=== PATIENT | male | born 1965 | race Caucasian/White ===

== ENCOUNTER 2017-09-11 00:09 | Emergency (ER) | payer OTHER ==
[~2017-09-11] VITALS: Ht 165.1 cm; Wt 63.5 kg
[~2017-09-11 00:09] MED LIST: AMLO10TA PO; ASPI81CT89 PO; ATOR20TA PO; LISI10TA11 PO; MULT-1469 PO; SEVE800T6 PO; TRA200 PO
[2017-09-11 00:20] VITALS: BP 131/81
--- NOTE | 2017-09-11 00:23 | NUR ---
TO BED # 1 AMBULATORY , REPORT GIVEN TO SOLANGE BURKETT
--- NOTE | 2017-09-11 00:25 | NUR ---
PT CAME IN WITH PAIN TO THE BACK. PT IS ABLE TO WALK AND HAS STEADY GAIT. DENIES N/V/D; SKIN IS PINK/WARM/DRY; AAOX4 WITH EVEN AND STEADY GAIT; HR EVEN AND REGULAR; PATIENT STATES PAIN OF 5/10 AT THIS TIME; VSS; PATIENT POSITIONED FOR COMFORT; HOB ELEVATED; BEDRAILS UP X2; BED DOWN. ER MD MADE AWARE OF PT STATUS.
--- NOTE | 2017-09-11 00:30 | NUR ---
pt has a shunt on his left arm. dialysis
[2017-09-11] MEDS ORDERED: ACETAMINOPHEN EXTRA STRENGTH 500 MG TAB PO ONE (01:35)
--- NOTE | 2017-09-11 02:12 | NUR ---
Patient discharged with v/s stable. Written and verbal after care instructions given and explained. Patient alert, oriented and verbalized understanding of instructions. Ambulatory with steady gait. All questions addressed prior to discharge. ID band removed. Patient advised to follow up with PMD. Rx of Lidoderm and Acetaminophen were given. Patient educated on indication of medication including possible reaction and side effects. Opportunity to ask questions provided and answered.
[2017-09-11 02:27] VITALS: BP 124/73
== END 2017-09-11 02:12 | disposition home or self-care (01) ==
LOC: MED 00:09
DX: M54.30 Sciatica, unspecified side (principal); M79.1 Myalgia; I10 Essential (primary) hypertension; Z79.899 Other long term (current) drug therapy; Z94.0 Kidney transplant status; Z79.82 Long term (current) use of aspirin
CPT/HCPCS: 99283

== ENCOUNTER 2020-03-09 19:27 | Inpatient (IN) | payer OTHER, SELFPAY ==
[~2020-03-09] VITALS: Ht 170.2 cm; Wt 70.5 kg
[~2020-03-09 19:27] MED LIST changes: +ASPI-1822 PO; -ASPI81CT89 PO; +LISI-486 PO; -LISI10TA11 PO
[2020-03-09 19:49] VITALS: BP 135/80
[2020-03-09 20:55] LABS: BASOPHILS % (AUTO) 0.1 % (0.0-2.0); EOSINOPHILS % (AUTO) 0.1 % (0.0-4.0); HEMATOCRIT 47.3 % (36-52); HEMOGLOBIN 15.7 g/dL (12.0-18.0); LYMPHOCYTES # (AUTO) 0.3 K/uL (2.0-11.5); LYMPHOCYTES % (AUTO) 4.3 % (20.5-51.1); MEAN CORPUSCULAR HEMOGLOBIN 29 pg (27-31); MEAN CORPUSCULAR HGB CONC 33 g/dL (33-37); MONOCYTES # (AUTO) 0.6 K/uL (0.8-1.0); MONOCYTES % (AUTO) 10.5 % (1.7-9.3); PLATELET COUNT (AUTO) 191 K/uL (140-450); RED BLOOD CELL COUNT(AUTO) 5.38 MIL/uL (4.20-6.10); RED CELL DISTRIBUTION WIDTH 14.1 % (11.6-13.7); WHITE BLOOD COUNT (AUTO) 5.9 K/uL (4.8-10.8)
[2020-03-09] MEDS ORDERED: CEL250 PO (21:03)
[2020-03-09] MEDS ORDERED: PRED5TAB8 PO (21:03)
[2020-03-09] MEDS ORDERED: TACR1CAP17 PO (21:03)
[2020-03-09] MEDS ORDERED: DEXAMETHASONE 10 MG/ML VIAL IVP ONE (21:05)
[2020-03-09] MEDS ORDERED: AZITHROMYCIN 500 MG in DEXTROSE 5% 250 ML IV ONE (21:05)
[2020-03-09 21:12] LABS: ALBUMIN 3.1 g/dL (3.4-5.0); ANION GAP 14.2 (8-16); CREATININE 1.4 mg/dL (0.6-1.3); POTASSIUM 4.2 mmol/L (3.5-5.1); TOTAL BILIRUBIN 0.4 mg/dL (0.0-1.0)
[2020-03-09] MEDS ORDERED: cefTRIAXone 1,000 MG VIAL ONE (21:12)
[2020-03-09] MEDS ORDERED: AZITHROMYCIN 500 MG INJ VIAL IV ONE (21:12)
[2020-03-09 21:14] LABS: LACTATE DEHYDROGENASE 310 U/L (85-227)
[2020-03-09 21:16] LABS: C-REACTIVE PROTEIN QUANT 7.2 mg/dL (0.0-0.9)
[2020-03-10] MEDS ORDERED: ACETAMINOPHEN 325 MG TAB PO PRN (01:05)
[2020-03-10] MEDS ORDERED: DOCUSATE SODIUM 100 MG GELCAP PO PRN (01:05)
[2020-03-10] MEDS ORDERED: HYDROcodone/APAP 7.5/325 MG 1 TAB PO PRN (01:05)
[2020-03-10] MEDS ORDERED: ALBUTEROL HFA MDI 90 MCG/ACTUATION 8 GM INH PRN (01:05)
[2020-03-10] MEDS ORDERED: POTASSIUM CHLORIDE 10 MEQ TABER PO PRN (01:05)
[2020-03-10 02:35] LABS: CHOL/HDL RATIO 3.3 (1-4.5); FREE T4 (FREE THYROXINE) 1.15 ng/dL (0.76-1.46); PHOSPHORUS 3.3 mg/dL (2.5-4.9); THYROID STIMULATING HORMONE 2.09 uIU/mL (0.34-3.74)
[2020-03-10] MEDS: ONDANSETRON 4 MG/2 ML VIAL IM/IVP PRN (06:46)
[2020-03-10 08:00] VITALS: BP 121/71
[2020-03-10] MEDS: ASCORBIC ACID 500 MG TAB PO SCH (08:55)
[2020-03-10] MEDS: ZINC SULF 220 MG CAP PO SCH (08:55)
[2020-03-10 12:00] VITALS: BP 116/69
[2020-03-10] MEDS: TACROLIMUS 0.5 MG CAP PO SCH ×2 (15:52→20:54)
[2020-03-10 16:00] VITALS: BP 137/86
[2020-03-10 20:00] VITALS: BP 128/86
[2020-03-10] MEDS: MYCOPHENOLATE 250 MG CAP PO SCH (20:53)
[2020-03-10] MEDS: lisinopriL 10 MG TAB PO SCH (20:53)
[2020-03-10] MEDS: ATORVASTATIN 20 MG TAB PO SCH (20:54)
[2020-03-10] MEDS: LABETALOL 200 MG TAB PO SCH (20:55)
[2020-03-11] VITALS: BP 94/61
[2020-03-11] MEDS ORDERED: LORazepam 2 MG/ML VIAL IVP PRN (05:20)
[2020-03-11] MEDS: AZITHROMYCIN 250 MG TAB PO SCH (05:24)
[2020-03-11 08:00] VITALS: BP 101/64
[2020-03-11] MEDS: amLODIPine 5 MG TAB PO SCH (09:00)
[2020-03-11] MEDS: lisinopriL 10 MG TAB PO SCH ×2 (09:00→21:00)
[2020-03-11] MEDS: LABETALOL 200 MG TAB PO SCH ×2 (09:00→21:00)
[2020-03-11] MEDS: MYCOPHENOLATE 250 MG CAP PO SCH ×2 (09:00→20:08)
[2020-03-11 09:33] LABS: BASOPHILS % (AUTO) 0.1 % (0.0-2.0); HEMATOCRIT 43.8 % (36-52); HEMOGLOBIN 14.6 g/dL (12.0-18.0); LYMPHOCYTES # (AUTO) 0.4 K/uL (2.0-11.5); LYMPHOCYTES % (AUTO) 3.5 % (20.5-51.1); MEAN CORPUSCULAR HEMOGLOBIN 29 pg (27-31); MEAN CORPUSCULAR HGB CONC 33 g/dL (33-37); MEAN CORPUSCULAR VOLUME 87.8 fL (80-94); MONOCYTES # (AUTO) 0.9 K/uL (0.8-1.0); MONOCYTES % (AUTO) 8.6 % (1.7-9.3); NEUTROPHILS # (AUTO) 9.3 K/uL (1.8-7.7); NEUTROPHILS % (AUTO) 87.8 % (42.2-75.2); PLATELET COUNT (AUTO) 253 K/uL (140-450); RED BLOOD CELL COUNT(AUTO) 4.99 MIL/uL (4.20-6.10); RED CELL DISTRIBUTION WIDTH 13.9 % (11.6-13.7); WHITE BLOOD COUNT (AUTO) 10.6 K/uL (4.8-10.8)
[2020-03-11 09:46] LABS: ANION GAP 17.7 (8-16); CARBON DIOXIDE 22.5 mmol/L (21-32); CREATININE 1.5 mg/dL (0.6-1.3); POTASSIUM 4.2 mmol/L (3.5-5.1)
[2020-03-11] MEDS: predniSONE 5 MG TAB PO SCH (09:51)
[2020-03-11] MEDS: ASCORBIC ACID 500 MG TAB PO SCH (09:51)
[2020-03-11] MEDS: TACROLIMUS 0.5 MG CAP PO SCH ×2 (09:51→20:16)
[2020-03-11] MEDS: VIT-B COMP/VIT-C/FOLIC ACID 1 TAB PO SCH (09:52)
[2020-03-11] MEDS: ASPIRIN 81 MG TAB.CHEW PO SCH (09:52)
[2020-03-11] MEDS: ZINC SULF 220 MG CAP PO SCH (09:53)
[2020-03-11 10:06] LABS: T4 (THYROXINE) 6.7 ug/dL (4.5-12.0)
[2020-03-11 12:00] VITALS: BP 109/79
[2020-03-11 16:00] VITALS: BP 120/73
[2020-03-11 20:00] VITALS: BP 106/68
[2020-03-11] MEDS: ATORVASTATIN 20 MG TAB PO SCH (20:15)
[2020-03-11] MEDS: ONDANSETRON 4 MG/2 ML VIAL IM/IVP PRN (21:23)
[2020-03-12] VITALS: BP 128/79
[2020-03-12 04:00] VITALS: BP 120/79
[2020-03-12 06:56] LABS: BASOPHILS % (AUTO) 0.3 % (0.0-2.0); HEMATOCRIT 46.1 % (36-52); HEMOGLOBIN 15.4 g/dL (12.0-18.0); LYMPHOCYTES # (AUTO) 0.3 K/uL (2.0-11.5); LYMPHOCYTES % (AUTO) 2.3 % (20.5-51.1); MEAN CORPUSCULAR HEMOGLOBIN 29 pg (27-31); MEAN CORPUSCULAR HGB CONC 33 g/dL (33-37); MEAN CORPUSCULAR VOLUME 87.1 fL (80-94); MONOCYTES % (AUTO) 7.5 % (1.7-9.3); NEUTROPHILS # (AUTO) 12.1 K/uL (1.8-7.7); NEUTROPHILS % (AUTO) 89.9 % (42.2-75.2); PLATELET COUNT (AUTO) 296 K/uL (140-450); RED BLOOD CELL COUNT(AUTO) 5.28 MIL/uL (4.20-6.10); RED CELL DISTRIBUTION WIDTH 13.8 % (11.6-13.7); WHITE BLOOD COUNT (AUTO) 13.4 K/uL (4.8-10.8)
[2020-03-12 07:24] LABS: ANION GAP 16.3 (8-16); CARBON DIOXIDE 23.3 mmol/L (21-32); CREATININE 1.2 mg/dL (0.6-1.3); POTASSIUM 4.6 mmol/L (3.5-5.1)
[2020-03-12 08:00] VITALS: BP 121/71
[2020-03-12] MEDS: TACROLIMUS 0.5 MG CAP PO SCH ×2 (09:00→21:46)
[2020-03-12] MEDS: MYCOPHENOLATE 250 MG CAP PO SCH (09:00)
[2020-03-12] MEDS: LABETALOL 200 MG TAB PO SCH ×2 (09:27→21:32)
[2020-03-12] MEDS: lisinopriL 10 MG TAB PO SCH ×2 (09:27→21:43)
[2020-03-12] MEDS: ASCORBIC ACID 500 MG TAB PO SCH (09:27)
[2020-03-12] MEDS: ASPIRIN 81 MG TAB.CHEW PO SCH (09:28)
[2020-03-12] MEDS: AZITHROMYCIN 250 MG TAB PO SCH (09:28)
[2020-03-12] MEDS: ZINC SULF 220 MG CAP PO SCH (09:28)
[2020-03-12] MEDS: amLODIPine 5 MG TAB PO SCH (09:29)
[2020-03-12] MEDS: predniSONE 5 MG TAB PO SCH (09:29)
[2020-03-12] MEDS: VIT-B COMP/VIT-C/FOLIC ACID 1 TAB PO SCH (09:29)
[2020-03-12 12:00] VITALS: BP 97/66
[2020-03-12 16:00] VITALS: BP 106/69
[2020-03-12 20:00] VITALS: BP 107/69
[2020-03-12] MEDS: ATORVASTATIN 20 MG TAB PO SCH (21:31)
[2020-03-13] VITALS: BP 112/71
[2020-03-13 04:00] VITALS: BP 107/69
[2020-03-13 07:47] LABS: BASOPHILS # (AUTO) 0.1 K/uL (0.00-0.22); BASOPHILS % (AUTO) 0.5 % (0.0-2.0); HEMATOCRIT 46.4 % (36-52); HEMOGLOBIN 15.3 g/dL (12.0-18.0); LYMPHOCYTES # (AUTO) 0.3 K/uL (2.0-11.5); LYMPHOCYTES % (AUTO) 1.9 % (20.5-51.1); MEAN CORPUSCULAR HEMOGLOBIN 29 pg (27-31); MEAN CORPUSCULAR HGB CONC 33 g/dL (33-37); MONOCYTES # (AUTO) 0.9 K/uL (0.8-1.0); MONOCYTES % (AUTO) 6.5 % (1.7-9.3); NEUTROPHILS # (AUTO) 12.9 K/uL (1.8-7.7); NEUTROPHILS % (AUTO) 91.1 % (42.2-75.2); PLATELET COUNT (AUTO) 353 K/uL (140-450); RED BLOOD CELL COUNT(AUTO) 5.28 MIL/uL (4.20-6.10); RED CELL DISTRIBUTION WIDTH 14.3 % (11.6-13.7); WHITE BLOOD COUNT (AUTO) 14.2 K/uL (4.8-10.8)
[2020-03-13 07:56] LABS: ANION GAP 14.9 (8-16); CREATININE 1.4 mg/dL (0.6-1.3); POTASSIUM 4.9 mmol/L (3.5-5.1)
[2020-03-13 08:00] VITALS: BP 110/68
[2020-03-13] MEDS: TACROLIMUS 0.5 MG CAP PO SCH ×2 (09:00→23:10)
[2020-03-13] MEDS: LABETALOL 200 MG TAB PO SCH ×2 (09:00→21:00)
[2020-03-13] MEDS ORDERED: COMMUNICATION ORDER MC SCH (09:00)
[2020-03-13] MEDS: VIT-B COMP/VIT-C/FOLIC ACID 1 TAB PO SCH (09:11)
[2020-03-13] MEDS: amLODIPine 5 MG TAB PO SCH (09:12)
[2020-03-13] MEDS: ASPIRIN 81 MG TAB.CHEW PO SCH (09:12)
[2020-03-13] MEDS: lisinopriL 10 MG TAB PO SCH ×2 (09:13→21:00)
[2020-03-13] MEDS: AZITHROMYCIN 250 MG TAB PO SCH (09:16)
[2020-03-13] MEDS: ZINC SULF 220 MG CAP PO SCH (09:16)
[2020-03-13] MEDS: ASCORBIC ACID 500 MG TAB PO SCH (10:00)
[2020-03-13] MEDS: PANTOPRAZOLE 40 MG INJ VIAL IVP SCH (10:19)
[2020-03-13 12:00] VITALS: BP 110/69
[2020-03-13 16:00] VITALS: BP 110/68
[2020-03-13 20:00] VITALS: BP 107/65
[2020-03-13] MEDS: ATORVASTATIN 20 MG TAB PO SCH (23:08)
[2020-03-14] VITALS: BP 115/70
[2020-03-14 04:00] VITALS: BP 116/77
[2020-03-14 08:00] VITALS: BP 124/71
[2020-03-14] MEDS: LABETALOL 200 MG TAB PO SCH ×2 (09:00→21:24)
[2020-03-14] MEDS: PANTOPRAZOLE 40 MG INJ VIAL IVP SCH (09:45)
[2020-03-14] MEDS: ZINC SULF 220 MG CAP PO SCH (09:45)
[2020-03-14] MEDS: ASCORBIC ACID 500 MG TAB PO SCH (09:45)
[2020-03-14] MEDS: ASPIRIN 81 MG TAB.CHEW PO SCH (09:46)
[2020-03-14] MEDS: VIT-B COMP/VIT-C/FOLIC ACID 1 TAB PO SCH (09:46)
[2020-03-14] MEDS: AZITHROMYCIN 250 MG TAB PO SCH (09:46)
[2020-03-14] MEDS: TACROLIMUS 0.5 MG CAP PO SCH ×2 (09:47→21:23)
[2020-03-14] MEDS: amLODIPine 5 MG TAB PO SCH (09:47)
[2020-03-14] MEDS: lisinopriL 10 MG TAB PO SCH ×2 (09:48→21:25)
[2020-03-14 12:00] VITALS: BP 119/74
[2020-03-14 16:00] VITALS: BP 113/66
[2020-03-14] MEDS: ATORVASTATIN 20 MG TAB PO SCH (21:25)
[2020-03-15 07:23] LABS: BASOPHILS # (AUTO) 0.1 K/uL (0.00-0.22); BASOPHILS % (AUTO) 0.7 % (0.0-2.0); EOSINOPHILS % (AUTO) 0.1 % (0.0-4.0); HEMATOCRIT 43.5 % (36-52); LYMPHOCYTES # (AUTO) 0.4 K/uL (2.0-11.5); LYMPHOCYTES % (AUTO) 2.1 % (20.5-51.1); MEAN CORPUSCULAR HEMOGLOBIN 29 pg (27-31); MEAN CORPUSCULAR HGB CONC 32 g/dL (33-37); MEAN CORPUSCULAR VOLUME 88.9 fL (80-94); MONOCYTES # (AUTO) 1.4 K/uL (0.8-1.0); MONOCYTES % (AUTO) 6.8 % (1.7-9.3); NEUTROPHILS # (AUTO) 18.3 K/uL (1.8-7.7); NEUTROPHILS % (AUTO) 90.3 % (42.2-75.2); PLATELET COUNT (AUTO) 385 K/uL (140-450); RED BLOOD CELL COUNT(AUTO) 4.89 MIL/uL (4.20-6.10); RED CELL DISTRIBUTION WIDTH 13.7 % (11.6-13.7); WHITE BLOOD COUNT (AUTO) 20.3 K/uL (4.8-10.8)
[2020-03-15 07:48] LABS: ANION GAP 15.4 (8-16); CARBON DIOXIDE 25.1 mmol/L (21-32); CREATININE 1.4 mg/dL (0.6-1.3); POTASSIUM 5.5 mmol/L (3.5-5.1)
[2020-03-15 08:00] VITALS: BP 103/56
[2020-03-15] MEDS: PANTOPRAZOLE 40 MG INJ VIAL IVP SCH (08:07)
[2020-03-15] MEDS: ASPIRIN 81 MG TAB.CHEW PO SCH (08:07)
[2020-03-15] MEDS: VIT-B COMP/VIT-C/FOLIC ACID 1 TAB PO SCH (08:08)
[2020-03-15] MEDS: AZITHROMYCIN 250 MG TAB PO SCH (08:09)
[2020-03-15] MEDS: ZINC SULF 220 MG CAP PO SCH (08:09)
[2020-03-15] MEDS: TACROLIMUS 0.5 MG CAP PO SCH ×2 (08:09→20:39)
[2020-03-15] MEDS: ASCORBIC ACID 500 MG TAB PO SCH (08:09)
[2020-03-15] MEDS: lisinopriL 10 MG TAB PO SCH (08:14)
[2020-03-15] MEDS: LABETALOL 200 MG TAB PO SCH ×2 (09:00→21:00)
[2020-03-15] MEDS: amLODIPine 5 MG TAB PO SCH (09:00)
[2020-03-15] MEDS: DEXT 5% / NACL 0.45% 1,000 ML IV SCH (10:10)
[2020-03-15 12:00] VITALS: BP 104/64
[2020-03-15] MEDS ORDERED: FUROSEMIDE 20 MG/2 ML VIAL IVP SCH (15:00)
[2020-03-15] MEDS ORDERED: SODIUM ZIRCONIUM CYCLOSILICATE 10 GM POWD.PACK PO SCH (15:00)
[2020-03-15 16:00] VITALS: BP 108/70
[2020-03-15 20:00] VITALS: BP 101/63
[2020-03-15] MEDS: ATORVASTATIN 20 MG TAB PO SCH (20:38)
[2020-03-16] VITALS: BP 98/60
[2020-03-16 04:00] VITALS: BP 94/56
[2020-03-16 06:56] LABS: BASOPHILS # (AUTO) 0.1 K/uL (0.00-0.22); BASOPHILS % (AUTO) 0.4 % (0.0-2.0); EOSINOPHILS # (AUTO) 0.2 K/uL (0-0.4); EOSINOPHILS % (AUTO) 1.2 % (0.0-4.0); HEMATOCRIT 43.7 % (36-52); HEMOGLOBIN 13.8 g/dL (12.0-18.0); LYMPHOCYTES # (AUTO) 0.4 K/uL (2.0-11.5); LYMPHOCYTES % (AUTO) 2.2 % (20.5-51.1); MEAN CORPUSCULAR HEMOGLOBIN 28 pg (27-31); MEAN CORPUSCULAR HGB CONC 32 g/dL (33-37); MEAN CORPUSCULAR VOLUME 89.5 fL (80-94); NEUTROPHILS # (AUTO) 18.2 K/uL (1.8-7.7); NEUTROPHILS % (AUTO) 91.2 % (42.2-75.2); PLATELET COUNT (AUTO) 379 K/uL (140-450); RED BLOOD CELL COUNT(AUTO) 4.89 MIL/uL (4.20-6.10); RED CELL DISTRIBUTION WIDTH 13.9 % (11.6-13.7)
[2020-03-16 07:29] LABS: ANION GAP 11.1 (8-16); CREATININE 1.3 mg/dL (0.6-1.3); POTASSIUM 5.1 mmol/L (3.5-5.1)
[2020-03-16 08:00] VITALS: BP 105/71
[2020-03-16] MEDS: PANTOPRAZOLE 40 MG INJ VIAL IVP SCH (10:20)
[2020-03-16] MEDS: LABETALOL 200 MG TAB PO SCH ×2 (10:21→21:00)
[2020-03-16] MEDS: ASCORBIC ACID 500 MG TAB PO SCH (10:26)
[2020-03-16] MEDS: VIT-B COMP/VIT-C/FOLIC ACID 1 TAB PO SCH (10:27)
[2020-03-16] MEDS: ASPIRIN 81 MG TAB.CHEW PO SCH (10:31)
[2020-03-16] MEDS: DEXT 5% / NACL 0.45% 1,000 ML IV SCH (10:32)
[2020-03-16] MEDS: ZINC SULF 220 MG CAP PO SCH (10:32)
[2020-03-16] MEDS: LEVOFLOXACIN 750 MG/D5W PREMIX 150 ML IV SCH (10:33)
[2020-03-16] MEDS: TACROLIMUS 0.5 MG CAP PO SCH ×2 (10:36→20:02)
[2020-03-16 12:00] VITALS: BP 104/54
[2020-03-16 16:00] VITALS: BP 107/63
[2020-03-16 20:00] VITALS: BP 104/68
[2020-03-16] MEDS: ATORVASTATIN 20 MG TAB PO SCH (20:03)
[2020-03-17] VITALS: BP 110/71
[2020-03-17 04:00] VITALS: BP 110/72
[2020-03-17 06:56] LABS: HEMATOCRIT 42.9 % (36-52); MEAN CORPUSCULAR HEMOGLOBIN 29 pg (27-31); MEAN CORPUSCULAR HGB CONC 33 g/dL (33-37); MEAN CORPUSCULAR VOLUME 88.5 fL (80-94); PLATELET COUNT (AUTO) 373 K/uL (140-450); RED BLOOD CELL COUNT(AUTO) 4.85 MIL/uL (4.20-6.10); RED CELL DISTRIBUTION WIDTH 13.7 % (11.6-13.7); WHITE BLOOD COUNT (AUTO) 19.5 K/uL (4.8-10.8)
[2020-03-17 07:00] LABS: ANION GAP 14.6 (8-16); CARBON DIOXIDE 22.6 mmol/L (21-32); CREATININE 1.2 mg/dL (0.6-1.3); POTASSIUM 5.2 mmol/L (3.5-5.1)
[2020-03-17 08:00] VITALS: BP 117/74
[2020-03-17] MEDS: VIT-B COMP/VIT-C/FOLIC ACID 1 TAB PO SCH (08:46)
[2020-03-17] MEDS: ZINC SULF 220 MG CAP PO SCH (08:46)
[2020-03-17] MEDS: ASCORBIC ACID 500 MG TAB PO SCH (08:47)
[2020-03-17] MEDS: ASPIRIN 81 MG TAB.CHEW PO SCH (08:47)
[2020-03-17] MEDS: PANTOPRAZOLE 40 MG INJ VIAL IVP SCH (08:48)
[2020-03-17] MEDS: TACROLIMUS 0.5 MG CAP PO SCH ×2 (08:49→21:25)
[2020-03-17] MEDS: LABETALOL 200 MG TAB PO SCH ×3 (08:50→21:00)
[2020-03-17] MEDS: DEXT 5% / NACL 0.45% 1,000 ML IV SCH (08:54)
[2020-03-17 09:30] LABS: APPEARANCE,URINE CLEAR (CLEAR); BILIRUBIN,URINE NEGATIVE (NEGATIVE); BLOOD, URINE NEGATIVE (NEGATIVE); COLOR,URINE YELLOW (YELLOW); LEUKOCYTE ESTERASE ,URINE NEGATIVE (NEGATIVE); NITRITE, URINE NEGATIVE (NEGATIVE); UGLUCOSE NEGATIVE (NEGATIVE)
[2020-03-17] MEDS: LEVOFLOXACIN 750 MG/D5W PREMIX 150 ML IV SCH (11:02)
[2020-03-17 11:49] LABS: LYMPHOCYTES % (MANUAL) 3 % (20-46); MONOCYTES % (MANUAL) 10 % (5-12)
[2020-03-17 12:00] VITALS: BP 116/83
[2020-03-17] MEDS: SODIUM ZIRCONIUM CYCLOSILICATE 10 GM POWD.PACK PO SCH (12:42)
[2020-03-17] MEDS ORDERED: SODIUM ZIRCONIUM CYCLOSILICATE 10 GM POWD.PACK PO ONE ×2 (12:45→14:50)
[2020-03-17] MEDS ORDERED: FUROSEMIDE 40 MG/4 ML VIAL IVP SCH (14:00)
[2020-03-17 16:00] VITALS: BP 125/83
[2020-03-17 20:00] VITALS: BP 106/67
[2020-03-17] MEDS: ATORVASTATIN 20 MG TAB PO SCH (21:25)
[2020-03-18] VITALS: BP 121/73
[2020-03-18 04:00] VITALS: BP 111/76
[2020-03-18 08:00] VITALS: BP 116/77
[2020-03-18 08:08] LABS: HEMATOCRIT 45.7 % (36-52); HEMOGLOBIN 15.1 g/dL (12.0-18.0); MEAN CORPUSCULAR HEMOGLOBIN 29 pg (27-31); MEAN CORPUSCULAR HGB CONC 33 g/dL (33-37); MEAN CORPUSCULAR VOLUME 88.6 fL (80-94); PLATELET COUNT (AUTO) 382 K/uL (140-450); RED BLOOD CELL COUNT(AUTO) 5.15 MIL/uL (4.20-6.10); WHITE BLOOD COUNT (AUTO) 20.3 K/uL (4.8-10.8)
[2020-03-18 08:17] LABS: ANION GAP 14.5 (8-16); CARBON DIOXIDE 25.4 mmol/L (21-32); CREATININE 1.3 mg/dL (0.6-1.3); POTASSIUM 4.9 mmol/L (3.5-5.1)
[2020-03-18 08:57] LABS: BASOPHILS % (MANUAL) 0 % (0-2); EOSINOPHILS % (MANUAL) 1 % (0-4); LYMPHOCYTES % (MANUAL) 3 % (20-46); MONOCYTES % (MANUAL) 8 % (5-12)
[2020-03-18] MEDS: LABETALOL 200 MG TAB PO SCH ×2 (09:00→21:02)
[2020-03-18] MEDS: ASPIRIN 81 MG TAB.CHEW PO SCH (10:26)
[2020-03-18] MEDS: TACROLIMUS 0.5 MG CAP PO SCH ×2 (10:26→20:57)
[2020-03-18] MEDS: PANTOPRAZOLE 40 MG INJ VIAL IVP SCH (10:27)
[2020-03-18] MEDS: ZINC SULF 220 MG CAP PO SCH (10:27)
[2020-03-18] MEDS: VIT-B COMP/VIT-C/FOLIC ACID 1 TAB PO SCH (10:27)
[2020-03-18] MEDS: ASCORBIC ACID 500 MG TAB PO SCH (10:27)
[2020-03-18] MEDS: LEVOFLOXACIN 750 MG/D5W PREMIX 150 ML IV SCH (10:28)
[2020-03-18] MEDS: SODIUM ZIRCONIUM CYCLOSILICATE 10 GM POWD.PACK PO SCH (10:36)
[2020-03-18 12:00] VITALS: BP 105/74
[2020-03-18 16:00] VITALS: BP 120/84
[2020-03-18 20:00] VITALS: BP 120/79
[2020-03-18] MEDS: ATORVASTATIN 20 MG TAB PO SCH (20:57)
[2020-03-19] VITALS: BP 114/73
[2020-03-19 04:00] VITALS: BP 108/70
[2020-03-19 07:08] LABS: HEMATOCRIT 49.1 % (36-52); HEMOGLOBIN 15.8 g/dL (12.0-18.0); LYMPHOCYTES # (AUTO) 0.5 K/uL (2.0-11.5); LYMPHOCYTES % (AUTO) 2.3 % (20.5-51.1); MEAN CORPUSCULAR HEMOGLOBIN 29 pg (27-31); MEAN CORPUSCULAR HGB CONC 32 g/dL (33-37); MEAN CORPUSCULAR VOLUME 88.7 fL (80-94); MONOCYTES % (AUTO) 5.1 % (1.7-9.3); NEUTROPHILS % (AUTO) 92.6 % (42.2-75.2); PLATELET COUNT (AUTO) 351 K/uL (140-450); RED BLOOD CELL COUNT(AUTO) 5.53 MIL/uL (4.20-6.10); RED CELL DISTRIBUTION WIDTH 14.1 % (11.6-13.7); WHITE BLOOD COUNT (AUTO) 20.5 K/uL (4.8-10.8)
[2020-03-19 07:41] LABS: ANION GAP 15.6 (8-16); CREATININE 1.4 mg/dL (0.6-1.3); POTASSIUM 5.6 mmol/L (3.5-5.1)
[2020-03-19 08:00] VITALS: BP 127/74
[2020-03-19] MEDS: VIT-B COMP/VIT-C/FOLIC ACID 1 TAB PO SCH (09:10)
[2020-03-19] MEDS: ASCORBIC ACID 500 MG TAB PO SCH (09:10)
[2020-03-19] MEDS: PANTOPRAZOLE 40 MG INJ VIAL IVP SCH (09:10)
[2020-03-19] MEDS: ASPIRIN 81 MG TAB.CHEW PO SCH (09:11)
[2020-03-19] MEDS: ZINC SULF 220 MG CAP PO SCH (09:11)
[2020-03-19] MEDS: LABETALOL 200 MG TAB PO SCH ×2 (09:11→20:31)
[2020-03-19] MEDS: SODIUM ZIRCONIUM CYCLOSILICATE 10 GM POWD.PACK PO SCH (09:12)
[2020-03-19] MEDS: TACROLIMUS 0.5 MG CAP PO SCH ×2 (09:13→20:30)
[2020-03-19] MEDS: LEVOFLOXACIN 750 MG/D5W PREMIX 150 ML IV SCH (10:48)
[2020-03-19 12:00] VITALS: BP 111/70
[2020-03-19] MEDS ORDERED: SODIUM ZIRCONIUM CYCLOSILICATE 10 GM POWD.PACK PO SCH (13:00)
[2020-03-19 16:00] VITALS: BP 132/81
[2020-03-19 20:00] VITALS: BP 132/92
[2020-03-19] MEDS ORDERED: LORazepam 0.5 MG TAB PO PRN (20:20)
[2020-03-19] MEDS: ATORVASTATIN 20 MG TAB PO SCH (20:30)
[2020-03-20] VITALS (34 sets, daily range): BP systolic 80–156; BP diastolic 8–97
[2020-03-20] MEDS: ZINC SULF 220 MG CAP PO SCH (09:00)
[2020-03-20] MEDS: VIT-B COMP/VIT-C/FOLIC ACID 1 TAB PO SCH (09:00)
[2020-03-20] MEDS: ASPIRIN 81 MG TAB.CHEW PO SCH (09:00)
[2020-03-20] MEDS: ASCORBIC ACID 500 MG TAB PO SCH (09:00)
[2020-03-20] MEDS: LABETALOL 200 MG TAB PO SCH ×2 (09:00→21:00)
[2020-03-20] MEDS ORDERED: PROPOFOL 1000 MG/100 ML PREMIX 100 ML IV ONE (09:08)
[2020-03-20 09:27] LABS: HEMATOCRIT 51.6 % (36-52); HEMOGLOBIN 16.6 g/dL (12.0-18.0); MEAN CORPUSCULAR HEMOGLOBIN 28 pg (27-31); MEAN CORPUSCULAR HGB CONC 32 g/dL (33-37); MEAN CORPUSCULAR VOLUME 88.1 fL (80-94); PLATELET COUNT (AUTO) 394 K/uL (140-450); RED BLOOD CELL COUNT(AUTO) 5.86 MIL/uL (4.20-6.10); RED CELL DISTRIBUTION WIDTH 14.5 % (11.6-13.7)
[2020-03-20 09:52] LABS: ANION GAP 17.9 (8-16); CARBON DIOXIDE 23.5 mmol/L (21-32); CREATININE 1.7 mg/dL (0.6-1.3)
[2020-03-20 10:02] LABS: POTASSIUM 6.4 mmol/L (3.5-5.1)
[2020-03-20] MEDS ORDERED: INSULIN REGULAR, HUMAN 100 UNIT/ML VIAL IV SCH (10:30)
[2020-03-20] MEDS ORDERED: SODIUM ZIRCONIUM CYCLOSILICATE 10 GM POWD.PACK PO SCH (10:30)
[2020-03-20] MEDS ORDERED: DEXTROSE 50% 50 ML SYR IVP SCH (10:30)
[2020-03-20 10:42] LABS: WHITE BLOOD COUNT (AUTO) 26.5 K/uL (4.8-10.8)
[2020-03-20 10:43] LABS: LYMPHOCYTES % (MANUAL) 2 % (20-46); MONOCYTES % (MANUAL) 3 % (5-12)
[2020-03-20] MEDS: PANTOPRAZOLE 40 MG INJ VIAL IVP SCH (11:59)
[2020-03-20] MEDS: TACROLIMUS 0.5 MG CAP PO SCH ×2 (11:59→20:25)
[2020-03-20] MEDS: LEVOFLOXACIN 750 MG/D5W PREMIX 150 ML IV SCH (12:01)
[2020-03-20] MEDS: NOREPINEPHRINE 4 MG in DEXTROSE 5% 250 ML IV PRN ×2 (12:02→17:46)
[2020-03-20 12:20] LABS: ANION GAP 22.6 (8-16); POTASSIUM 5.6 mmol/L (3.5-5.1)
[2020-03-20] MEDS: SODIUM BICARBONATE 8.4% 50 MEQ in DEXTROSE 5% 1,000 ML IV SCH (12:33)
[2020-03-20] MEDS ORDERED: fentaNYL citrate 0.05 MG/ML VIAL ONE (15:54)
[2020-03-20] MEDS ORDERED: fentaNYL citrate 1 MG in NACL 0.9% 80 ML IV PRN (15:55)
[2020-03-20] MEDS ORDERED: LIDOCAINE MPF 1% 10 MG/ML VIAL INJ SCH (16:10)
[2020-03-20] MEDS ORDERED: fentaNYL citrate 0.05 MG/ML VIAL IVP SCH (16:10)
[2020-03-20] MEDS ORDERED: ROCURONIUM 50 MG/5 ML VIAL IV ONE (16:22)
[2020-03-20 17:02] LABS: ANION GAP 10.2 (8-16); CARBON DIOXIDE 26.9 mmol/L (21-32); CREATININE 1.9 mg/dL (0.6-1.3); POTASSIUM 4.1 mmol/L (3.5-5.1)
[2020-03-20] MEDS: fentaNYL citrate - 50mL vial 2.5 MG in NACL 0.9% 200 ML IV PRN (17:09)
[2020-03-20] MEDS ORDERED: ROCURONIUM 50 MG/5 ML VIAL IV SCH (17:35)
[2020-03-20] MEDS: PROPOFOL 1000 MG/100 ML PREMIX 100 ML IV PRN ×2 (19:09→23:42)
[2020-03-20] MEDS ORDERED: CRUSHER, PILL MC ONE (20:22)
[2020-03-20] MEDS: ATORVASTATIN 20 MG TAB PO SCH (20:25)
[2020-03-20] MEDS: ROCURONIUM IV PRN (20:30)
[2020-03-20] MEDS: NACL 0.9% IV PRN (20:30)
[2020-03-21] VITALS (30 sets, daily range): BP systolic 99–133; BP diastolic 55–74
[2020-03-21] MEDS: SODIUM BICARBONATE 8.4% 50 MEQ in DEXTROSE 5% 1,000 ML IV SCH ×3 (00:28→19:30)
[2020-03-21] MEDS: NACL 0.9% IV PRN ×3 (00:32→12:28)
[2020-03-21] MEDS: ROCURONIUM IV PRN ×3 (00:32→12:28)
[2020-03-21] MEDS: PROPOFOL 1000 MG/100 ML PREMIX 100 ML IV PRN ×2 (05:39→22:16)
[2020-03-21 06:12] LABS: HEMATOCRIT 45.2 % (36-52); HEMOGLOBIN 14.4 g/dL (12.0-18.0); MEAN CORPUSCULAR HEMOGLOBIN 29 pg (27-31); MEAN CORPUSCULAR HGB CONC 32 g/dL (33-37); MEAN CORPUSCULAR VOLUME 89.6 fL (80-94); PLATELET COUNT (AUTO) 270 K/uL (140-450); RED BLOOD CELL COUNT(AUTO) 5.04 MIL/uL (4.20-6.10); RED CELL DISTRIBUTION WIDTH 14.5 % (11.6-13.7)
[2020-03-21 06:46] LABS: ANION GAP 12.5 (8-16); CARBON DIOXIDE 28.5 mmol/L (21-32); CREATININE 1.9 mg/dL (0.6-1.3); MAGNESIUM 2.7 mg/dL (1.8-2.4)
[2020-03-21 06:59] LABS: WHITE BLOOD COUNT (AUTO) 36.8 K/uL (4.8-10.8)
[2020-03-21 07:09] LABS: PHOSPHORUS 10.4 mg/dL (2.5-4.9)
[2020-03-21] MEDS: PANTOPRAZOLE 40 MG INJ VIAL IVP SCH (08:16)
[2020-03-21] MEDS: VIT-B COMP/VIT-C/FOLIC ACID 1 TAB PO SCH (08:17)
[2020-03-21] MEDS: ASCORBIC ACID 500 MG TAB PO SCH (08:17)
[2020-03-21] MEDS: TACROLIMUS 0.5 MG CAP PO SCH ×2 (08:17→21:00)
[2020-03-21] MEDS: ZINC SULF 220 MG CAP PO SCH (08:18)
[2020-03-21 08:44] LABS: EOSINOPHILS % (MANUAL) 1 % (0-4); LYMPHOCYTES % (MANUAL) 2 % (20-46); MONOCYTES % (MANUAL) 4 % (5-12)
[2020-03-21] MEDS: ASPIRIN 81 MG TAB.CHEW PO SCH (09:00)
[2020-03-21] MEDS: LABETALOL 200 MG TAB PO SCH ×3 (09:00→22:03)
[2020-03-21] MEDS: LEVOFLOXACIN 750 MG/D5W PREMIX 150 ML IV SCH (09:48)
[2020-03-21] MEDS: ATORVASTATIN 20 MG TAB PO SCH (22:11)
[2020-03-22] VITALS (31 sets, daily range): BP systolic 89–130; BP diastolic 51–73
[2020-03-22] MEDS ORDERED: PIPERACILLIN/TAZOBACTAM 3.375 GM VIAL IV ONE ×2 (00:16→06:09)
[2020-03-22] MEDS: PIPERACILLIN/TAZOBACTAM 3.375 GM in DEXTROSE 5% 50 ML IV SCH ×4 (00:30→23:09)
[2020-03-22] MEDS: ROCURONIUM IV PRN ×2 (02:14→06:08)
[2020-03-22] MEDS: NACL 0.9% IV PRN ×2 (02:14→06:08)
[2020-03-22] MEDS: PROPOFOL 1000 MG/100 ML PREMIX 100 ML IV PRN ×4 (04:03→18:51)
[2020-03-22 06:15] LABS: MEAN CORPUSCULAR HEMOGLOBIN 28 pg (27-31); MEAN CORPUSCULAR HGB CONC 32 g/dL (33-37); MEAN CORPUSCULAR VOLUME 89.2 fL (80-94); PLATELET COUNT (AUTO) 180 K/uL (140-450); RED BLOOD CELL COUNT(AUTO) 4.93 MIL/uL (4.20-6.10)
[2020-03-22 06:45] LABS: ANION GAP 8.8 (8-16); CREATININE 2.2 mg/dL (0.6-1.3); MAGNESIUM 2.7 mg/dL (1.8-2.4); POTASSIUM 4.8 mmol/L (3.5-5.1); TOTAL BILIRUBIN 2.8 mg/dL (0.0-1.0)
[2020-03-22 07:33] LABS: LYMPHOCYTES % (MANUAL) 4 % (20-46); MONOCYTES % (MANUAL) 3 % (5-12)
[2020-03-22] MEDS: PANTOPRAZOLE 40 MG INJ VIAL IVP SCH (08:59)
[2020-03-22] MEDS: VIT-B COMP/VIT-C/FOLIC ACID 1 TAB PO SCH (09:00)
[2020-03-22] MEDS: LABETALOL 200 MG TAB PO SCH ×2 (09:00→21:00)
[2020-03-22] MEDS: ASPIRIN 81 MG TAB.CHEW PO SCH (09:00)
[2020-03-22] MEDS: TACROLIMUS 0.5 MG CAP PO SCH ×2 (09:01→21:05)
[2020-03-22] MEDS: ASCORBIC ACID 500 MG TAB PO SCH (09:02)
[2020-03-22] MEDS: ZINC SULF 220 MG CAP PO SCH (09:02)
[2020-03-22] MEDS: SODIUM BICARBONATE 8.4% 50 MEQ in DEXTROSE 5% 1,000 ML IV SCH ×3 (10:30→21:38)
[2020-03-22] MEDS: NOREPINEPHRINE 4 MG in DEXTROSE 5% 250 ML IV PRN ×2 (11:21→19:41)
[2020-03-22] MEDS: ATORVASTATIN 20 MG TAB PO SCH (21:04)
[2020-03-22] MEDS: fentaNYL citrate - 50mL vial 2.5 MG in NACL 0.9% 200 ML IV PRN (23:26)
[2020-03-23] VITALS (31 sets, daily range): BP systolic 120–174; BP diastolic 59–74
[2020-03-23] MEDS: PROPOFOL 1000 MG/100 ML PREMIX 100 ML IV PRN ×3 (00:28→23:31)
[2020-03-23] MEDS: NOREPINEPHRINE 4 MG in DEXTROSE 5% 250 ML IV PRN (02:01)
[2020-03-23] MEDS: PIPERACILLIN/TAZOBACTAM 3.375 GM in DEXTROSE 5% 50 ML IV SCH ×4 (05:01→23:26)
[2020-03-23 05:38] LABS: BASOPHILS # (AUTO) 0.3 K/uL (0.00-0.22); HEMATOCRIT 41.9 % (36-52); HEMOGLOBIN 13.2 g/dL (12.0-18.0); LYMPHOCYTES # (AUTO) 0.4 K/uL (2.0-11.5); LYMPHOCYTES % (AUTO) 1.1 % (20.5-51.1); MEAN CORPUSCULAR HEMOGLOBIN 29 pg (27-31); MEAN CORPUSCULAR HGB CONC 32 g/dL (33-37); MEAN CORPUSCULAR VOLUME 90.5 fL (80-94); MONOCYTES # (AUTO) 1.7 K/uL (0.8-1.0); MONOCYTES % (AUTO) 5.2 % (1.7-9.3); NEUTROPHILS # (AUTO) 29.4 K/uL (1.8-7.7); NEUTROPHILS % (AUTO) 92.7 % (42.2-75.2); PLATELET COUNT (AUTO) 170 K/uL (140-450); RED BLOOD CELL COUNT(AUTO) 4.63 MIL/uL (4.20-6.10); RED CELL DISTRIBUTION WIDTH 14.4 % (11.6-13.7)
[2020-03-23 05:59] LABS: MAGNESIUM 2.3 mg/dL (1.8-2.4); PHOSPHORUS 5.9 mg/dL (2.5-4.9)
[2020-03-23 06:18] LABS: WHITE BLOOD COUNT (AUTO) 31.7 K/uL (4.8-10.8)
[2020-03-23 07:04] LABS: ALBUMIN 1.9 g/dL (3.4-5.0); ASPARTATE AMINOTRANSFERASE 113 U/L (15-37); CHLORIDE 90 mmol/L (98-107); CREATININE 3.2 mg/dL (0.6-1.3); GFR ARICAN-AMERICAN 26 mL/min (>90); GLUCOSE 266 mg/dL (74-106); LACTATE DEHYDROGENASE 747 U/L (85-227); POTASSIUM 4.7 mmol/L (3.5-5.1); SODIUM SERUM 127 mmol/L (136-145); UREA NITROGEN, BLOOD 58 mg/dL (7-18)
[2020-03-23 07:31] LABS: CARBON DIOXIDE 25.7 mmol/L (21-32)
[2020-03-23] MEDS: ASCORBIC ACID 500 MG TAB PO SCH (08:33)
[2020-03-23] MEDS: PANTOPRAZOLE 40 MG INJ VIAL IVP SCH (08:33)
[2020-03-23] MEDS: ASPIRIN 81 MG TAB.CHEW PO SCH (08:36)
[2020-03-23] MEDS: ZINC SULF 220 MG CAP PO SCH (08:36)
[2020-03-23] MEDS: TACROLIMUS 0.5 MG CAP PO SCH ×2 (08:36→20:35)
[2020-03-23] MEDS: VIT-B COMP/VIT-C/FOLIC ACID 1 TAB PO SCH (08:37)
[2020-03-23] MEDS: LABETALOL 200 MG TAB PO SCH ×2 (08:38→20:41)
[2020-03-23] MEDS ORDERED: VANCOMYCIN PER PHARMACY MC PRN (17:35)
[2020-03-23] MEDS ORDERED: VANCOMYCIN HCL 1.25 GM in NACL 0.9% 250 ML IV SCH (18:00)
[2020-03-23] MEDS: ATORVASTATIN 20 MG TAB PO SCH (20:35)
[2020-03-24] VITALS (45 sets, daily range): BP systolic 85–140; BP diastolic 36–79
[2020-03-24] MEDS: PROPOFOL 1000 MG/100 ML PREMIX 100 ML IV PRN ×4 (02:42→21:45)
[2020-03-24] MEDS: PIPERACILLIN/TAZOBACTAM 3.375 GM in DEXTROSE 5% 50 ML IV SCH ×3 (05:15→12:49)
[2020-03-24 06:29] LABS: HEMATOCRIT 39.1 % (36-52); HEMOGLOBIN 12.5 g/dL (12.0-18.0); MEAN CORPUSCULAR HEMOGLOBIN 29 pg (27-31); MEAN CORPUSCULAR HGB CONC 32 g/dL (33-37); MEAN CORPUSCULAR VOLUME 89.9 fL (80-94); PLATELET COUNT (AUTO) 150 K/uL (140-450); RED BLOOD CELL COUNT(AUTO) 4.35 MIL/uL (4.20-6.10); RED CELL DISTRIBUTION WIDTH 14.3 % (11.6-13.7)
[2020-03-24 06:49] LABS: ANION GAP 15.1 (8-16); CARBON DIOXIDE 25.9 mmol/L (21-32); MAGNESIUM 2.3 mg/dL (1.8-2.4); PHOSPHORUS 8.5 mg/dL (2.5-4.9)
[2020-03-24 07:14] LABS: CREATININE 4.6 mg/dL (0.6-1.3)
[2020-03-24 07:57] LABS: LYMPHOCYTES % (MANUAL) 1 % (20-46); MONOCYTES % (MANUAL) 2 % (5-12); WHITE BLOOD COUNT (AUTO) 37.2 K/uL (4.8-10.8)
[2020-03-24] MEDS: LABETALOL 200 MG TAB PO SCH ×2 (09:00→20:22)
[2020-03-24] MEDS ORDERED: ALBUMIN HUMAN 25% 100 ML IV ONE (09:23)
[2020-03-24] MEDS: PANTOPRAZOLE 40 MG INJ VIAL IVP SCH (09:38)
[2020-03-24] MEDS: VIT-B COMP/VIT-C/FOLIC ACID 1 TAB PO SCH (09:41)
[2020-03-24] MEDS: TACROLIMUS 0.5 MG CAP PO SCH ×2 (09:41→20:20)
[2020-03-24] MEDS: ASPIRIN 81 MG TAB.CHEW PO SCH (09:41)
[2020-03-24] MEDS: ASCORBIC ACID 500 MG TAB PO SCH (09:42)
[2020-03-24] MEDS: ZINC SULF 220 MG CAP PO SCH (09:42)
[2020-03-24 09:58] LABS: ALBUMIN 1.7 g/dL (3.4-5.0); ANION GAP 23.3 (8-16); ASPARTATE AMINOTRANSFERASE 95 U/L (15-37); CARBON DIOXIDE 20.7 mmol/L (21-32); CHLORIDE 86 mmol/L (98-107); GFR ARICAN-AMERICAN 17 mL/min (>90); GLUCOSE 130 mg/dL (74-106); LACTATE DEHYDROGENASE 747 U/L (85-227); MAGNESIUM 2.3 mg/dL (1.8-2.4); PHOSPHORUS 8.3 mg/dL (2.5-4.9); SODIUM SERUM 125 mmol/L (136-145); TOTAL BILIRUBIN 0.8 mg/dL (0.0-1.0)
[2020-03-24 10:01] LABS: CREATININE 4.6 mg/dL (0.6-1.3); UREA NITROGEN, BLOOD 88 mg/dL (7-18)
[2020-03-24] MEDS ORDERED: bisacodyL 10 MG SUPP RC PRN (10:35)
[2020-03-24] MEDS ORDERED: METOCLOPRAMIDE 10 MG/2 ML INJ VIAL IVP SCH ×2 (12:00→13:00)
[2020-03-24] MEDS ORDERED: CALCIUM GLUCONATE 10% 1,000 MG in NACL 0.9% 50 ML IV SCH ×4 (12:00)
[2020-03-24] MEDS: SENNA 8.6 MG TAB PEG SCH ×2 (12:46→20:20)
[2020-03-24] MEDS: POLYETHYLENE GLYCOL 17 GM/PKT NG SCH (12:47)
[2020-03-24] MEDS: DOCUSATE 100 MG/10 ML UDC GT SCH ×2 (12:47→20:20)
[2020-03-24] MEDS: NOREPINEPHRINE 4 MG in DEXTROSE 5% 250 ML IV PRN ×3 (15:48→20:34)
[2020-03-24] MEDS: METOCLOPRAMIDE 10 MG/2 ML INJ VIAL IVP SCH (17:24)
[2020-03-24] MEDS: ATORVASTATIN 20 MG TAB PO SCH (20:21)
[2020-03-25] VITALS (101 sets, daily range): BP systolic 74–136; BP diastolic 22–63
[2020-03-25] MEDS: PIPERACILLIN/TAZOBACTAM 3.375 GM in DEXTROSE 5% 50 ML IV SCH ×4 (00:50→17:16)
[2020-03-25] MEDS: METOCLOPRAMIDE 10 MG/2 ML INJ VIAL IVP SCH ×4 (00:51→17:18)
[2020-03-25] MEDS: PROPOFOL 1000 MG/100 ML PREMIX 100 ML IV PRN ×4 (01:35→21:15)
[2020-03-25] MEDS: NOREPINEPHRINE 4 MG in DEXTROSE 5% 250 ML IV PRN ×5 (01:37→21:16)
[2020-03-25 06:05] LABS: MEAN CORPUSCULAR HEMOGLOBIN 29 pg (27-31)
[2020-03-25 06:28] LABS: HEMATOCRIT 34.9 % (36-52); MEAN CORPUSCULAR HGB CONC 31 g/dL (33-37); MEAN CORPUSCULAR VOLUME 90.7 fL (80-94); PLATELET COUNT (AUTO) 140 K/uL (140-450); RED BLOOD CELL COUNT(AUTO) 3.85 MIL/uL (4.20-6.10); RED CELL DISTRIBUTION WIDTH 14.2 % (11.6-13.7)
[2020-03-25 06:37] LABS: ANION GAP 16.2 (8-16); CARBON DIOXIDE 25.4 mmol/L (21-32); POTASSIUM 5.6 mmol/L (3.5-5.1)
[2020-03-25 06:38] LABS: MAGNESIUM 2.2 mg/dL (1.8-2.4); PHOSPHORUS 8.5 mg/dL (2.5-4.9)
[2020-03-25 06:44] LABS: CREATININE 5.6 mg/dL (0.6-1.3)
[2020-03-25 07:33] LABS: LYMPHOCYTES % (MANUAL) 2 % (20-46); MONOCYTES % (MANUAL) 5 % (5-12)
[2020-03-25] MEDS: LABETALOL 200 MG TAB PO SCH ×2 (09:00→21:00)
[2020-03-25] MEDS: TACROLIMUS 0.5 MG CAP PO SCH ×2 (09:00→21:11)
[2020-03-25] MEDS: DOCUSATE 100 MG/10 ML UDC GT SCH ×2 (09:35→21:10)
[2020-03-25] MEDS: PANTOPRAZOLE 40 MG INJ VIAL IVP SCH (09:35)
[2020-03-25] MEDS: POLYETHYLENE GLYCOL 17 GM/PKT NG SCH (09:36)
[2020-03-25] MEDS: SENNA 8.6 MG TAB PEG SCH ×2 (09:37→21:10)
[2020-03-25] MEDS: VIT-B COMP/VIT-C/FOLIC ACID 1 TAB PO SCH (09:38)
[2020-03-25] MEDS: ASCORBIC ACID 500 MG TAB PO SCH (09:38)
[2020-03-25] MEDS: ZINC SULF 220 MG CAP PO SCH (09:38)
[2020-03-25] MEDS: ASPIRIN 81 MG TAB.CHEW PO SCH (09:38)
[2020-03-25] MEDS ORDERED: VANCOMYCIN PER PHARMACY MC PRN (11:05)
[2020-03-25] MEDS: CALCIUM ACETATE 667 MG TAB PO SCH ×2 (12:28→17:18)
[2020-03-25] MEDS: fentaNYL citrate - 50mL vial 2.5 MG in NACL 0.9% 200 ML IV PRN (17:50)
[2020-03-25] MEDS ORDERED: FLUCONAZOLE 200 MG/NS PREMIX 100 ML IV SCH (20:55)
[2020-03-25] MEDS: ATORVASTATIN 20 MG TAB PO SCH (21:11)
[2020-03-26] VITALS (101 sets, daily range): BP systolic 43–135; BP diastolic 18–70
[2020-03-26] MEDS: PIPERACILLIN/TAZOBACTAM 3.375 GM in DEXTROSE 5% 50 ML IV SCH ×4 (00:31→17:08)
[2020-03-26] MEDS: METOCLOPRAMIDE 10 MG/2 ML INJ VIAL IVP SCH ×4 (00:31→17:08)
[2020-03-26] MEDS: NOREPINEPHRINE 4 MG in DEXTROSE 5% 250 ML IV PRN (03:03)
[2020-03-26] MEDS ORDERED: NOREPINEPHRINE 4 MG/4 ML VIAL IV ONE (05:56)
[2020-03-26] MEDS ORDERED: VASOPRESSIN 20 UNITS/ML VIAL ONE ×2 (05:57→23:12)
[2020-03-26] MEDS ORDERED: NACL 0.9% 500 ML IV ONE (06:00)
[2020-03-26 06:06] LABS: HEMATOCRIT 32.2 % (36-52); HEMOGLOBIN 10.1 g/dL (12.0-18.0); MEAN CORPUSCULAR HEMOGLOBIN 28 pg (27-31); MEAN CORPUSCULAR HGB CONC 31 g/dL (33-37); MEAN CORPUSCULAR VOLUME 90.4 fL (80-94); PLATELET COUNT (AUTO) 119 K/uL (140-450); RED BLOOD CELL COUNT(AUTO) 3.57 MIL/uL (4.20-6.10); RED CELL DISTRIBUTION WIDTH 14.5 % (11.6-13.7)
[2020-03-26] MEDS: VASOPRESSIN 20 UNITS in NACL 0.9% 250 ML IV SCH ×3 (06:13→23:22)
[2020-03-26] MEDS: PHENYLEPHRINE 40 MG in NACL 0.9% 250 ML IV PRN ×2 (06:15→16:59)
[2020-03-26] MEDS: NOREPINEPHRINE 16 MG in DEXTROSE 5% 250 ML IV PRN (06:15)
[2020-03-26] MEDS ORDERED: PHENYLEPHRINE 10 MG/ML VIAL ONE (06:16)
[2020-03-26 06:25] LABS: ANION GAP 19.3 (8-16); CARBON DIOXIDE 21.6 mmol/L (21-32); POTASSIUM 5.9 mmol/L (3.5-5.1)
[2020-03-26 06:27] LABS: PHOSPHORUS 8.9 mg/dL (2.5-4.9)
[2020-03-26 06:39] LABS: CREATININE 5.8 mg/dL (0.6-1.3)
[2020-03-26] MEDS: DOPamine 400 MG/D5W PREMIX 250 ML IV PRN (07:25)
[2020-03-26 07:26] LABS: WHITE BLOOD COUNT (AUTO) 39.9 K/uL (4.8-10.8)
[2020-03-26 07:27] LABS: LYMPHOCYTES % (MANUAL) 1 % (20-46); MONOCYTES % (MANUAL) 4 % (5-12)
[2020-03-26] MEDS ORDERED: DOPamine 400 MG/D5W PREMIX 250 ML IV ONE (07:29)
[2020-03-26] MEDS: CALCIUM ACETATE 667 MG TAB PO SCH ×3 (08:00→17:08)
[2020-03-26] MEDS: LABETALOL 200 MG TAB PO SCH ×2 (09:00→21:00)
[2020-03-26] MEDS ORDERED: VANCOMYCIN 1,000 MG in DEXTROSE 5% 250 ML IV SCH (09:00)
[2020-03-26] MEDS: ASPIRIN 81 MG TAB.CHEW PO SCH (09:54)
[2020-03-26] MEDS: PANTOPRAZOLE 40 MG INJ VIAL IVP SCH (09:54)
[2020-03-26] MEDS: POLYETHYLENE GLYCOL 17 GM/PKT NG SCH (09:54)
[2020-03-26] MEDS: VIT-B COMP/VIT-C/FOLIC ACID 1 TAB PO SCH (09:54)
[2020-03-26] MEDS: ASCORBIC ACID 500 MG TAB PO SCH (09:54)
[2020-03-26] MEDS: TACROLIMUS 0.5 MG CAP PO SCH ×2 (09:54→22:02)
[2020-03-26] MEDS: SENNA 8.6 MG TAB PEG SCH ×2 (09:54→22:01)
[2020-03-26] MEDS: ZINC SULF 220 MG CAP PO SCH (09:54)
[2020-03-26] MEDS: DOCUSATE 100 MG/10 ML UDC GT SCH ×2 (09:54→21:59)
[2020-03-26] MEDS ORDERED: SODIUM ZIRCONIUM CYCLOSILICATE 10 GM POWD.PACK PO SCH ×2 (10:51→16:29)
[2020-03-26 15:21] LABS: ANION GAP 20.1 (8-16); CARBON DIOXIDE 21.3 mmol/L (21-32)
[2020-03-26 15:25] LABS: CREATININE 6.6 mg/dL (0.6-1.3); POTASSIUM 6.4 mmol/L (3.5-5.1)
[2020-03-26] MEDS ORDERED: DEXTROSE 50% 50 ML SYR IVP SCH (16:29)
[2020-03-26] MEDS ORDERED: SODIUM BICARBONATE 8.4% PFS 50 MEQ/50 ML SYR IVP SCH (16:29)
[2020-03-26] MEDS ORDERED: INSULIN REGULAR, HUMAN 100 UNIT/ML VIAL IVP SCH (16:30)
[2020-03-26] MEDS ORDERED: SODIUM BICARBONATE 8.4% PFS 50 MEQ/50 ML SYR IVP ONE (16:30)
[2020-03-26] MEDS ORDERED: SODIUM BICARBONATE 650 MG TAB PO SCH (21:00)
[2020-03-26] MEDS: ATORVASTATIN 20 MG TAB PO SCH (21:58)
[2020-03-27] VITALS (20 sets, daily range): BP systolic 80–120; BP diastolic 25–51
[2020-03-27] MEDS: PIPERACILLIN/TAZOBACTAM 3.375 GM in DEXTROSE 5% 50 ML IV SCH (00:18)
[2020-03-27] MEDS: METOCLOPRAMIDE 10 MG/2 ML INJ VIAL IVP SCH (00:18)
[2020-03-27] MEDS: DOPamine 400 MG/D5W PREMIX 250 ML IV PRN (01:02)
[2020-03-27] MEDS: NOREPINEPHRINE 16 MG in DEXTROSE 5% 250 ML IV PRN (04:15)
[2020-03-27] MEDS: PHENYLEPHRINE 40 MG in NACL 0.9% 250 ML IV PRN (04:16)
[2020-03-27 06:04] LABS: ANION GAP 24.6 (8-16); CARBON DIOXIDE 19.5 mmol/L (21-32)
[2020-03-27 06:07] LABS: HEPATITIS A ANTIBODY IGM Negative (Negative); HEPATITIS B CORE AB TOTAL Negative (Negative); HEPATITIS B SURFACE ANTIBODY Reactive (.); HEPATITIS B SURFACE ANTIGEN Negative (Negative)
[2020-03-27 06:16] LABS: HEMATOCRIT 26.2 % (36-52); HEMOGLOBIN 8.3 g/dL (12.0-18.0); MEAN CORPUSCULAR HEMOGLOBIN 28 pg (27-31); MEAN CORPUSCULAR HGB CONC 32 g/dL (33-37); MEAN CORPUSCULAR VOLUME 90.1 fL (80-94); PLATELET COUNT (AUTO) 95 K/uL (140-450); RED CELL DISTRIBUTION WIDTH 14.4 % (11.6-13.7)
[2020-03-27 06:27] LABS: CREATININE 7.2 mg/dL (0.6-1.3); POTASSIUM 7.1 mmol/L (3.5-5.1)
[2020-03-27 08:54] LABS: LYMPHOCYTES % (MANUAL) 5 % (20-46); MONOCYTES % (MANUAL) 10 % (5-12)
[2020-03-27 08:55] LABS: WHITE BLOOD COUNT (AUTO) 40.9 K/uL (4.8-10.8)
== END 2020-03-27 11:08 | DRG 720 ==
LOC: MED 19:27 → MTU 22:07 → MIC 03-20 10:33
PROVIDERS: ADMIT Hospitalist; ATTEND Hospitalist
PROC: 5A1955Z Respiratory Ventilation, Greater than 96 Consecutive Hours (ICD-10-PCS; principal; 2020-03-20)
PROC: 0BH17EZ Insertion of Endotracheal Airway into Trachea, Via Natural or Artificial Opening (ICD-10-PCS; 2020-03-20)
PROC: 02HV33Z Insertion of Infusion Device into Superior Vena Cava, Percutaneous Approach (ICD-10-PCS; 2020-03-20)
PROC: B548ZZA Ultrasonography of Superior Vena Cava, Guidance (ICD-10-PCS; 2020-03-20)
PROC: 5A1D70Z Performance of Urinary Filtration, Intermittent, Less than 6 Hours Per Day (ICD-10-PCS; 2020-03-20)
PROC: 0W9B30Z Drainage of Left Pleural Cavity with Drainage Device, Percutaneous Approach (ICD-10-PCS; 2020-03-20)
PROC: 5A12012 Performance of Cardiac Output, Single, Manual (ICD-10-PCS; 2020-03-27)
DX: A41.9 Sepsis, unspecified organism (principal); U07.1 COVID-19; N17.0 Acute kidney failure with tubular necrosis; D84.9 Immunodeficiency, unspecified; E83.39 Other disorders of phosphorus metabolism; E86.9 Volume depletion, unspecified; E87.1 Hypo-osmolality and hyponatremia; E87.5 Hyperkalemia; I13.2 Hypertensive heart and chronic kidney disease with heart failure and with stage 5 chronic kidney disease, or end stage renal disease; D63.8 Anemia in other chronic diseases classified elsewhere; G93.41 Metabolic encephalopathy; I50.9 Heart failure, unspecified; E44.0 Moderate protein-calorie malnutrition; I46.9 Cardiac arrest, cause unspecified; Z66 Do not resuscitate; J12.82 Pneumonia due to coronavirus disease 2019; J93.9 Pneumothorax, unspecified; J96.01 Acute respiratory failure with hypoxia; I49.3 Ventricular premature depolarization; N18.6 End stage renal disease; N39.0 Urinary tract infection, site not specified; Z94.0 Kidney transplant status; Z99.2 Dependence on renal dialysis; Z79.82 Long term (current) use of aspirin; Z79.899 Other long term (current) drug therapy; Z68.24 Body mass index [BMI] 24.0-24.9, adult
CPT/HCPCS: 36415; 36600; 71045; 80048; 80053; 80202; 81003; 82550; 82553; 82728; 82803; 83036; 83605; 83615; 83735; 83880; 84100; 84436; 84439; 84443; 84479; 84484; 85025; 85379; 85384; 85610; 85651; 85730; 86140; 86704; 86706; 86708; 86709; 86803; 86900; 86901; 87040; 87070; 87081; 87086; 87205; 87340; 87804; 89220; 90935; 92950; 93005; 94002; 94003; 97110; 97112; 97530; 99291; C9113; J0456; J0610; J0696; J1100; J1265; J1450; J1644; J1815; J1940; J1956; J2060; J2370; J2405; J2543; J2704; J2765; J3010; J3370; J3490; J7030; J7060; J7507; J7512; J7517; P9046; U0003